=== PATIENT | male | born 1945 | race Caucasian/White ===

== ENCOUNTER 2024-06-16 09:17 | Emergency (ER) | payer BC, SELFPAY ==
[2024-06-16 09:39] VITALS: BP 166/75; PULSE 62; RESP 16; TEMP 37.2; O2SAT 98
--- NOTE | 2024-06-16 09:40 | ED.EAR ---
HPI - Ear Problem General Chief complaint: Ear Stated complaint: ears blocked Time Seen by Provider: 06/16/24 09:41 Source: patient Mode of arrival: ambulatory Limitations: no limitations History of Present Illness HPI Narrative: 78-year-old male presents with complaint of decreased hearing to right ear. States that right ear feels blocked. Is concerned for cerumen impaction. Tried Debrox for 2 days with no relief. All systems reviewed and negative except as noted above. Related Data Allergies Allergy/AdvReac Type Severity Reaction Status Date / Time No Known Allergies Allergy Verified 06/16/24 09:36 Review of Systems Review of Systems: CONSTITUTIONAL: Denies fever, chills, or sweats. EYES: Denies visual changes, redness, or discharge. ENT: Denies rhinorrhea, congestion, sore throat . Reports decreased hearing and ears feeling blocked. CARDIOVASCULAR: Denies chest pain, palpitations, or edema. RESPIRATORY: Denies cough or dyspnea. GASTROINTESTINAL: Denies abdominal pain, nausea, vomiting, or diarrhea. GENITOURINARY: Denies dysuria or hematuria. SKIN: Denies rash or itching. MUSCULOSKELETAL: Denies back pain, joint pain, or myalgia. NEUROLOGIC: Denies headache, numbness, or weakness. PSYCHIATRIC: Denies anxiety or depression. All other systems reviewed are negative, except as documented in HPI. PMFSH Comments At time of signature, agree with nursing past medical, surgical, social and family history. There is no relevant family history pertinent to the presenting complaint. Exam Narrative: GENERAL: This is a well-nourished, well-developed patient, in no apparent distress. HEAD: normocephalic, atraumatic. EYES: PERRL. Sclera clear/white. Vision is grossly intact. EARS: External ears normal, Cerumen impaction to both ear canals. after irrigation, TMs normal without perforation. Hearing grossly intact. NOSE: External nose normal NECK: Neck supple, non-tender without lymphadenopathy, masses or thyromegaly. CARDIOVASCULAR: Regular rate and rhythm without murmurs, gallops, or rubs. RESPIRATORY: Clear to auscultation. Breath sounds equal bilaterally. No wheezes, rales, or rhonchi. SKIN: warm, Dry, intact with no suspicious lesions or rash, good texture and turgor. NEURO: awake, alert, and oriented to person, place and time. There were no obvious focal neurologic abnormalities. EXTREMITIES: No joint tenderness, effusion, or edema noted. Course Course Level of Care: Express Care Visit Vital Signs Vital signs: Vital Signs Temperature 37.2 C 06/16/24 09:39 Pulse Rate 62 06/16/24 09:39 Respiratory Rate 16 06/16/24 09:39 Blood Pressure 166/75 H 06/16/24 09:39 Pulse Oximetry 98 06/16/24 09:39 Oxygen Delivery Room Air 06/16/24 09:39 Temperature 37.2 C 06/16/24 09:39 Pulse Rate 62 06/16/24 09:39 Respiratory Rate 16 06/16/24 09:39 Blood Pressure 166/75 H 06/16/24 09:39 Pulse Oximetry 98 06/16/24 09:39 Oxygen Delivery Room Air 06/16/24 09:39 reviewed Procedures Ear Wax Removal Both Ears: Ear Wax Removal Date: 06/16/24 Ear Wax Removal Time: 09:50 Cerumenolytic Used: other ( warm water) Results: Re-examined: cerumen removed completely TM Examination: TM(s) intact, normal appearance Ear Canal Exam: atraumatic Patient Tolerated Procedure: well Complications: no problems Technique: ear canal irrigated and ear canal curetted Medical Decision Making MDM Narrative Medical decision making narrative: Patient is aware of diagnosis, understands and agrees to treatment plan. Anticipatory guidance given. Patient agrees to follow-up as directed and is aware of reasons to seek care at the emergency department. Portions of this record may have been created with voice recognition software Vital Signs Vital Signs: Vital Signs Temperature 37.2 C 06/16/24 09:39 Pulse Rate 62 06/16/24 09:39 Respirato
== END 2024-06-16 10:02 | disposition home or self-care (01) ==
PROVIDERS: Emergency Provider Nurse Practitioner Family
DX: H61.23 Impacted cerumen, bilateral (principal); R01.1 Cardiac murmur, unspecified; E78.00 Pure hypercholesterolemia, unspecified; I10 Essential (primary) hypertension; Z95.2 Presence of prosthetic heart valve; K21.9 Gastro-esophageal reflux disease without esophagitis; E11.9 Type 2 diabetes mellitus without complications
CPT/HCPCS: 69210; 99212; G0463